=== PATIENT | female | born 1960 | race American Indian/Alaskan Native ===

== ENCOUNTER 2023-11-12 10:08 | Outpatient (CLI) | payer MEDICARE, MEDICAID | END 2023-11-12 10:09 | disposition critical access hospital (66) | LOC: EMS 10:08 | DX: S49.91XA Unspecified injury of right shoulder and upper arm, initial encounter (principal); X58.XXXA Exposure to other specified factors, initial encounter | CPT/HCPCS: A0425; A0429 ==

== ENCOUNTER 2023-11-12 10:32 | Emergency (ER) | payer MEDICARE, MEDICAID ==
[2023-11-12] MEDS ORDERED: KETOROLAC 60 MG/2 ML VIAL IM STA (10:36)
--- NOTE | 2023-11-12 10:38 | ED Physician Documentation ---
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 She says she has had right shoulder pain for as long as she can remember. It is a 10 out of 10 pain. She denies any injury but the detox facility states that she did have a fall prior to being admitted to the facility about 2 days ago. She has not taken anything for the pain. PD PAST MEDICAL HISTORY - Present Medications Home Medications: Ambulatory Orders Medication Instructions Recorded Confirmed Meloxicam [Mobic] 7.5 mg PO BID PRN #20 tablet 11/12/23 - Allergies Allergies/Adverse Reactions: Allergies Allergy/AdvReac Type Severity Reaction Status Date / Time quetiapine [From Seroquel] Allergy Unknown Verified 11/12/23 10:41 risperidone [From Risperdal] Allergy Unknown Verified 11/12/23 10:41 trazodone Allergy Unknown Verified 11/12/23 10:41 PD ED PE NORMAL - Vitals Vital signs reviewed: Yes - General General: Alert and oriented X 3, No acute distress - Extremities Extremities: Other (Unable to elicit any tenderness of the shoulder per se but she has severe pain with any range of motion. No clear deformity or abnormality of any of her toes on either foot.) - Neuro Neuro: Alert and oriented X 3 Eye Opening: Spontaneous Motor: Obeys Commands Verbal: Oriented GCS Score: 15 - Psych Psych: Normal mood, Normal affect Results - Vitals Vitals: Vital Signs - 24 hr 11/12/23 11/12/23 10:37 13:26 Temperature 36.8 C 36.8 C Heart Rate 74 72 Respiratory 18 16 Rate Blood Pressure 127/67 124/66 O2 Saturation 95 98 - Rads (name of study) X-rays of the feet show erosive changes, x-ray of right shoulder is negative. Relevant Findings:: Final report received, EMP independent interpretation of test PD Medical Decision Making - ED course ED course: She presents with chronic shoulder pain from detox facility. Feeling better after IM Toradol here. She also has toe pain and found of arthritic changes on x-rays there but negative shoulder x-ray. Follow-up advised. Departure - Departure Disposition: Home, Self Care Clinical Impression: Shoulder pain Qualifiers: Chronicity: chronic Laterality: right Qualified Code(s): M25.511 - Pain in right shoulder Degenerative arthritis of toe joint Qualifiers: Laterality: unspecified laterality Qualified Code(s): M19.079 - Primary osteoarthritis, unspecified ankle and foot Condition: Good Record reviewed to determine appropriate education?: Yes Instructions: ED Shoulder Pain [facility] Follow-Up: [facility] [Provider Group] Prescriptions: Meloxicam [Mobic] 7.5 mg PO BID PRN #20 tablet PRN Reason: Pain Comments: You can wear the sling for comfort but please come out of it a few times a day and do gentle range of motion shoulder exercises to prevent frozen joints. Aft er you get out of detox reasonable to follow-up with an orthopedist in your area and the [place] [facility] office number is on this form. Return for new or worsening symptoms. Forms: PCP List Discharge Date/Time: 11/12/23 13:00
--- NOTE | 2023-11-12 12:12 | XRAY Report ---
PROCEDURE: Foot 3+V BL INDICATIONS: B toe pain TECHNIQUE: 3 views of the bilateral feet were acquired. COMPARISON: None. FINDINGS: Bones: Acute fracture or dislocation. Postoperative changes are present at the right and left first ray and within the left third digit. There questionable periarticular bony erosions of the left second and third digits and the right fift h digit. No prior studies are available for comparison. Findings may also be postsurgical in nature. There are no other bony erosions, periarticular osteopenia or suspicious bony lesions. Soft tissues: No suspicious soft tissue calcifications or masses. IMPRESSION: 1. No acute fracture or dislocation. 2. Questionable periarticular bony erosions of the bilateral digits as described above. No prior comp arisons are available to determine the acuity of these findings, and these findings may be associated with prior surgical intervention. However, erosive arthritis cannot be excluded and should be consid ered in the differential diagnosis based on clinical history. Reviewed by: Rebeca Montelongo MD on 11/12/2023 12:11 PM PST Approved by: Rebeca Montelongo MD on 11/12/2023 12:11 PM PST Station ID: [id number]
--- NOTE | 2023-11-12 12:48 | XRAY Report ---
PROCEDURE: Shoulder 2+V RT INDICATIONS: shoulder pain TECHNIQUE: 3 views of the shoulder were acquired. COMPARISON: None. FINDINGS: Bones: No fractures or dislocations. No suspicious bony lesions. Visualized ribs appear intact. Soft tissues: No suspicious soft tissue calcifications. The visualized lungs are within normal limi ts. IMPRESSION: No acute bony abnormality. If pain persists with conservative management, consider repeat radiographs in 10-14 days or cross-sectional imaging. Alternatively, if there is high clinical suspicion for sof t tissue derangement, MRI of the shoulder could be used. Reviewed by: Rebeca Montelongo MD on 11/12/2023 12:46 PM PST Approved by: Rebeca Montelongo MD on 11/12/2023 12:46 PM PST Station ID: [id number]
[2023-11-12 13:36] VITALS: BP 124/66; O2SAT 98
== END 2023-11-12 13:00 | disposition home or self-care (01) ==
LOC: ED 10:32
DX: M25.511 Pain in right shoulder (principal); M19.079 Primary osteoarthritis, unspecified ankle and foot
CPT/HCPCS: 96372; 99284